=== PATIENT | male | born 2005 | race Caucasian/White ===

== ENCOUNTER → 2024-11-11 19:30 | Outpatient (BNV) | payer OTHER, SELFPAY | PROVIDERS: Visit Provider Radiology Diagnostic Radiology | DX: M23.361 Other meniscus derangements, other lateral meniscus, right knee (principal); M25.461 Effusion, right knee; M24.19 Other articular cartilage disorders, other specified site | CPT/HCPCS: 73721 ==

== ENCOUNTER 2024-11-11 19:32 | Outpatient (REF) | payer OTHER, SELFPAY ==
--- NOTE | ~2024-11-11 | MR_ITS ---
CLINICAL HISTORY: Right knee pain. Football injury HX ACL REPAIR 1 YEAR AGO PRIOR MRI REPORT INCLUDE D MR right knee without gadolinium Comparison: Right knee 12/23/2023 report only, no images provided. Findings: No acute fracture or pathologic bone lesion. Moderate joint effusion present. There has been a ACL reconstruction, which is intact. The posterior cruciate ligament is intact. Lateral collateral and medial collateral ligaments are intact. Patellar retinacula and iliotibial band are intact. Quadriceps, patellar, popliteus, and flexor tendons are intact. There is susceptibility artifact in the center of the patellar tendon likely from ACL graft harvesting. There are no meniscal tears. In the inferior aspect of the lateral patellar facet there is increased signal within the patellar cartilage. No full-thickness defects. The trochlear cartilage is intact. In the medial joint compartment areas of partial-thickness fissuring in the weight-bearing femoral articular cartilage. In the lateral joint compartment there is an anterior full-thickness defect of the weight-bearing femoral condyle cartilage measuring 3 mm in width series 12, image 15. There is extrusion and maceration as well as partial absence of the midbody of the lateral meniscus The medial meniscus has a radial tear in the posterior horn series 12, image 22. IMPRESSION: 1. Intact reconstructed ACL. 2. Extrusion and maceration of the body of the lateral meniscus, as well as partial absence. 3. Radial tear in the posterior horn of the medial meniscus. 4. Moderate joint effusion. 5. 3 mm full-thickness defect of the articular cartilage in the anterior weight-bearing lateral femoral condyle. This document has been electronically signed by: Dilan Curran MD on 11/11/2024 20:45:54
== END 2024-11-11 19:33 | disposition home or self-care (01) ==
LOC: HO.MRI 19:32
PROVIDERS: Visit Provider Family Medicine
DX: M25.561 Pain in right knee (principal)
CPT/HCPCS: 73721